=== PATIENT | female | born 1970 | race Caucasian/White ===

== ENCOUNTER 2018-06-04 15:15 | Inpatient (IN) | payer MEDICAID ==
[~2018-06-04] VITALS: Ht 154.9 cm; Wt 97.1 kg
[2018-06-04 16:38] LABS: BASOPHIL % 0.3 % (0-2); PLATELET COUNT 246 x10^3mcL (130-400); RED CELL DISTRIBUTION WIDTH 13.5 % (11.5-14.5)
[2018-06-04 16:44] LABS: CALCIUM 8.4 mg/dL (8.5-10.1); CARBON DIOXIDE 24.1 mmol/L (21-32); CHLORIDE SERUM 99 mmol/L (98-107); CREATININE SERUM 0.6 mg/dL (0.6-1.0); GFR1 > 60 mL/min; GLUCOSE SERUM 180 mg/dL (74-106); POTASSIUM SERUM 3.6 mmol/L (3.5-5.1); SODIUM SERUM 136 mmol/L (136-145)
[2018-06-04 16:48] LABS: ALBUMIN 3.6 g/dL (3.4-5.0); ALKALINE PHOSPHATASE 102 U/L (46-116); ALT/SGPT 47 U/L (14-59); AST/SGOT 16 U/L (15-37); BILIRUBIN TOTAL 0.52 mg/dL (0.20-1.00); LIPASE 169 IU/L (73-393)
[2018-06-04 16:52] LABS: TOTAL PROTEIN, SERUM 8.6 g/dL (6.4-8.2)
[2018-06-04 19:16] LABS: UA SPECIFIC GRAVITY >=1.030 (1.005-1.035); microscopic required? YES; urine erythrocyte TRACE (NEGATIVE)
[2018-06-04 21:24] LABS: BASOPHIL % 0.1 % (0-2); PLATELET COUNT 229 x10^3mcL (130-400); RED CELL DISTRIBUTION WIDTH 13.7 % (11.5-14.5)
[2018-06-04 21:39] LABS: CHLORIDE SERUM 103 mmol/L (98-107); CREATININE SERUM 0.8 mg/dL (0.6-1.0); GFR1 > 60 mL/min; GLUCOSE SERUM 189 mg/dL (74-106); POTASSIUM SERUM 3.7 mmol/L (3.5-5.1); SODIUM SERUM 138 mmol/L (136-145)
[2018-06-04 21:56] LABS: T3 TOTAL 0.94 ng/mL
[2018-06-04] MEDS ORDERED: GLIPIZIDE10 M2 PO (22:25)
[2018-06-04] MEDS ORDERED: LIPI20 PO (22:25)
[2018-06-04] MEDS ORDERED: METFORMIN HCL850 MG PO (22:25)
[2018-06-04] MEDS ORDERED: LOT10 PO (22:26)
[2018-06-04] MEDS ORDERED: JARDIANCE10 MG PO (22:26)
[2018-06-04 22:27] LABS: FREE T4 1.22 ng/dL (0.76-1.46); FREE THYROXINE INDEX 3.4 ug/dL (1.4-4.5)
[2018-06-04] MEDS ORDERED: JANUVIA100 M1 PO (22:27)
[2018-06-04 23:20] VITALS: BP 129/69
[2018-06-05 05:29] VITALS: BP 97/52
[2018-06-05 05:50] LABS: BASOPHIL % 0.2 % (0-2); PLATELET COUNT 201 x10^3mcL (130-400)
[2018-06-05 06:25] LABS: CALCIUM 7.7 mg/dL (8.5-10.1); CHLORIDE SERUM 100 mmol/L (98-107); CREATININE SERUM 0.8 mg/dL (0.6-1.0); GFR1 > 60 mL/min; GLUCOSE SERUM 165 mg/dL (74-106); MAGNESIUM 1.6 mg/dL (1.8-2.4); PHOSPHOROUS 2.7 mg/dL (2.5-4.9); POTASSIUM SERUM 3.8 mmol/L (3.5-5.1); SODIUM SERUM 133 mmol/L (136-145)
[2018-06-05 09:37] VITALS: BP 122/70
[2018-06-05 12:50] VITALS: BP 96/53
[2018-06-05 12:50] LABS: AMPHETAMINE QUAL UR NONE DETECTED (See below)
[2018-06-05 16:55] VITALS: BP 113/65
[2018-06-05 20:53] VITALS: BP 117/70
[2018-06-06 05:38] VITALS: BP 119/77
[2018-06-06 05:58] LABS: BASOPHIL % 0.2 % (0-2); PLATELET COUNT 203 x10^3mcL (130-400); RED CELL DISTRIBUTION WIDTH 14.2 % (11.5-14.5)
[2018-06-06 06:35] LABS: CALCIUM 8.2 mg/dL (8.5-10.1); CARBON DIOXIDE 23.7 mmol/L (21-32); CHLORIDE SERUM 103 mmol/L (98-107); CREATININE SERUM 0.6 mg/dL (0.6-1.0); GFR1 > 60 mL/min; GLUCOSE SERUM 121 mg/dL (74-106); MAGNESIUM 1.9 mg/dL (1.8-2.4); PHOSPHOROUS 2.1 mg/dL (2.5-4.9); POTASSIUM SERUM 3.3 mmol/L (3.5-5.1); SODIUM SERUM 138 mmol/L (136-145)
[2018-06-06 08:25] VITALS: BP 115/70
[2018-06-06 13:28] VITALS: BP 115/74
[2018-06-06] MEDS ORDERED: LEVOFLOXACIN500 M1 PO (14:06)
[2018-06-06 14:17] VITALS: BP 115/74
== END 2018-06-06 15:10 | disposition home or self-care (01) | DRG 720 ==
LOC: ED 15:15 → DU 21:27
PROVIDERS: Emergency Medicine; Family Medicine; Internal Medicine
DX: A41.9 Sepsis, unspecified organism (principal); N17.0 Acute kidney failure with tubular necrosis; E66.01 Morbid (severe) obesity due to excess calories; D68.59 Other primary thrombophilia; E83.42 Hypomagnesemia; E87.1 Hypo-osmolality and hyponatremia; Z68.41 Body mass index [BMI] 40.0-44.9, adult; N39.0 Urinary tract infection, site not specified; K52.9 Noninfective gastroenteritis and colitis, unspecified; I10 Essential (primary) hypertension; E11.9 Type 2 diabetes mellitus without complications; E78.5 Hyperlipidemia, unspecified; Z79.84 Long term (current) use of oral hypoglycemic drugs
CPT/HCPCS: 82962; 84439; 87046; 87046-59; J1956; J2405; J7030

== ENCOUNTER 2018-10-13 10:10 | Emergency (ER) | payer MEDICAID ==
[~2018-10-13] VITALS: Ht 154.9 cm; Wt 97.1 kg
[~2018-10-13 10:10] MED LIST: GLIPIZIDE10 M2 PO; JANUVIA100 M1 PO; JARDIANCE10 MG PO; LEVOFLOXACIN500 M1 PO; LIPI20 PO; LOT10 PO; METFORMIN HCL850 MG PO
[2018-10-13 10:15] VITALS: Ht 154.9 cm; Wt 97.1 kg
[2018-10-13 11:27] VITALS: BP 140/80
== END 2018-10-13 11:27 | disposition home or self-care (01) ==
LOC: ED 10:10
DX: S29.012A Strain of muscle and tendon of back wall of thorax, initial encounter (principal); I10 Essential (primary) hypertension; E11.9 Type 2 diabetes mellitus without complications; E78.00 Pure hypercholesterolemia, unspecified; E11.65 Type 2 diabetes mellitus with hyperglycemia; Z90.710 Acquired absence of both cervix and uterus; X50.0XXA Overexertion from strenuous movement or load, initial encounter; Y93.89 Activity, other specified; Y92.89 Other specified places as the place of occurrence of the external cause; Y99.8 Other external cause status
CPT/HCPCS: 82962; J1885; Q0092